=== PATIENT | female | born 1980 | race Caucasian/White ===

== ENCOUNTER → 2018-05-03 | Outpatient (REF) | payer OTHER ==
[~2018-05-03] MED LIST: ACE325 PO; ALB0.5 INH; CELE-1 PO; CIP500 PO; CYC10 PO; FOL1 PO; HYDR-389 PO; HYDR473S4 PO; IBU200 PO; IBU800 PO; IBUP-1687 PO; IBUP800T37 PO; LOR5 PO; LOR5/325 PO; OND4 PO; PREN-127 PO; SUDAFED
[2018-05-03 15:40] LABS: PLATELET COUNT, AUTOMATED 292 K/uL (150-450)
== END ==
PROVIDERS: ATTEND Nurse Practitioner Family
DX: R42 Dizziness and giddiness (principal)
CPT/HCPCS: 82040; 82247; 82310; 82374; 82435; 82565; 82947; 84075; 84132; 84155; 84295; 84450; 84460; 84520; 85025

== ENCOUNTER 2018-05-19 11:59 | Emergency (ER) | payer OTHER ==
--- NOTE | 2018-05-19 12:08 | ER Report ---
History and Physical Time Seen By MD: 12:08 HPI/ROS CHIEF COMPLAINT: Cardiac problem HISTORY OF PRESENT ILLNESS: Patient is a 38 year old female who presents to the emergency department with complaint of left-sided chest pain that began approxi mately 1 hour prior to presentation. Patient states proximal me 3 hours prior to presentation she was involved in an argument with a coworker. She admits that this increased her anxiety, she did not initially have chest pain during the argument. Patient admits to some exertional dyspnea. She denies cough or fever. Patient is a smoker. She states she smokes approximately 10-15 cigarettes daily. No prior cardiac history in herself however there is history of cardiac disease in her immediate family. Patient does state that at time she has lightheadedness she is not currently experiencing that but she is complaining of numbness to her fingertips bilaterally. REVIEW OF SYSTEMS: Constitutional: No fever, no chills. Eyes: No discharge. ENT: No sore throat. Cardiovascular: Chest pain Respiratory: Exertional dyspnea Gastrointestinal: No abdominal pain, no vomiting. Genitourinary: No hematuria. Musculoskeletal: No back pain. Skin: No rashes. Neurological: No headache. Allergies: Coded Allergies: iodine (Verified Allergy, Intermediate, 05/19/18) Shellfish (Verified Allergy, Mild, 05/19/18) egg (Verified Allergy, Mild, 05/19/18) latex (Verified Allergy, Mild, 05/19/18) Uncoded Allergies: PEANUTS (Allergy, Intermediate, TONGUE SWELLING, 06/12/10) BANANAS (Allergy, Mild, 06/12/10) TOMATOES (Allergy, Mild, 06/12/10) Home Meds Reported Medications Escitalopram Oxalate (LEXAPRO) 5 Mg Tablet, 10 MG PO QDAY 05/19/18 Ibuprofen (ADVIL) 200 Mg Tablet, 1-2 TAB PO Q6-8H PRN for PAIN/HEADACHE 07/22/16 Discontinued Reported Medications Celecoxib (CELEBREX) 200 Mg Capsule, 200 MG PO QDAY PRN for PAIN, CAPSULE 07/22/16 Acetaminophen (Tylenol) 325 Mg Tab, 325 MG PO Q4-6H PRN for PAIN/HEADACHE 08/04/11 Discontinued Scripts Ibuprofen (IBUPROFEN) 800 Mg Tablet, 800 MG PO Q8H PRN for PAIN, #30 TAB 0 Refills Prov:STEVE REN MD 07/30/16 Acetaminophen/Hydrocodone (HYDROCODON-ACETAMINOPH 7.5-325) 1 Each Ea, 1-2 EACH PO Q4H PRN for PAIN, #30 EA 0 Refills Prov:STEVE REN MD 07/30/16 Past Medical/Surgical History Depression Hx Smoking: Yes (SMOKED 3/4 PPD FOR 15 YEARS.) Smoking Status: Former Smoker Exposure to Second Hand Smoke?: Yes Hx Substance Use Disorder: No Hx Alcohol Use: Yes Constitutional Vital Sign - Last 24 Hours 05/19/18 05/19/18 12:02 12:20 Temp 98.5 Pulse 85 Resp 20 B/P (MAP) 136/86 Pulse Ox 93 O2 Delivery Room Air O2 Flow Rate 2.0 Physical Exam General Appearance: The patient is alert, has no immediate need for airway protection and no signs of toxicity. ENT, Mouth: Mucous membranes are moist. Respiratory: There are no retractions, lungs are clear to auscultation. Cardiovascular: Regular rate and rhythm. Gastrointestinal: Abdomen is soft and non tender, no masses, bowel sounds normal. Neurological: Awake and alert Musculoskeletal: Neck is supple non tender. Extremities are nontender, nonswollen and have full range of motion. Medical Decision Making Data Points Result Diagram: 05/19/18 1213 05/19/18 1213 Laboratory Hematology Test 05/19/18 12:13 Red Blood Count 5.22 M/uL (4.17-5.56) Mean Corpuscular Volume 88.6 fL (80.0-96.0) Mean Corpuscular Hemoglobin 30.4 pg (26.0-33.0) Mean Corpuscular Hemoglobin Concent 34.3 g/dL (32.0-36.0) Red Cell Distribution Width 13.8 % (11.5-14.5) Mean Platelet Volume 7.6 fL (7.2-11.1) Neutrophils (%) (Auto) 60.4 % (39.4-72.5) Lymphocytes (%) (Auto) 27.6 % (17.6-49.6) Monocytes (%) (Auto) 5.5 % (4.1-12.4) Eosinophils (%) (Auto) 5.4 % (0.4-6.7) Basophils (%) (Auto) 1.1 % (0.3-1.4) Nucleated RBC Relative Count (auto) 0.2 /100WBC Neutrophils # (Auto) 5.7 K/uL (2.0-7.4) Lymphocytes # (Auto) 2.6 K/uL (1.3-3.6) Monocytes # (Auto) 0.5 K/uL (0.3-1.0) Eosinophils # (Auto) 0.5 K/uL (0.0-0.5) Basophils # (Auto) 0.1 K/uL (0.0-0.1) Nucleated RBC Absolute Count (auto) 0.02 K/uL D-Dimer Quantitative (PE/DVT) 0.59 ug/ml (0-0.50) Sodium Level 140 mmol/L (137-145) Potassium Level 4.1 mmol/L (3.5-5.0) Chloride Level 107 mmol/L (98-107) Carbon Dioxide Level 23 mmol/L (22-31) Blood Urea Nitrogen 9 mg/dl (7-18) Creatinine 0.90 mg/dl (0.52-1.04) Glomerular Filtration Rate Calc > 60.0 Random Glucose 86 mg/dl (75-110) Calcium Level 8.7 mg/dl (8.4-10.2) Total Bilirubin 0.3 mg/dl (0.2-1.3) Aspartate Amino Transf (AST/SGOT) 28 U/L (0-35) Alanine Aminotransferase (ALT/SGPT) 22 U/L (0-56) Alkaline Phosphatase 103 U/L (0-126) Troponin I < 0.012 ng/ml Total Protein 7.5 g/dl (6.3-8.2) Albumin 4.2 g/dl (3.5-5.0) Human Chorionic Gonadotropin, Qual Negative (NEGATIVE) Chemistry Test 05/19/18 12:13 White Blood Count 9.4 k/uL (4.5-11.0) Red Blood Count 5.22 M/uL (4.17-5.56) Hemoglobin 15.9 g/dL (12.0-16.0) Hematocrit 46.3 % (34.0-47.0) Mean Corpuscular Volume 88.6 fL (80.0-96.0) Mean Corpuscular Hemoglobin 30.4 pg (26.0-33.0) Mean Corpuscular Hemoglobin Concent 34.3 g/dL (32.0-36.0) Red Cell Distribution Width 13.8 % (11.5-14.5) Platelet Count 276 K/uL (150-450) Mean Platelet Volume 7.6 fL (7.2-11.1) Neutrophils (%) (Auto) 60.4 % (39.4-72.5) Lymphocytes (%) (Auto) 27.6 % (17.6-49.6) Monocytes (%) (Auto) 5.5 % (4.1-12.4) Eosinophils (%) (Auto) 5.4 % (0.4-6.7) Basophils (%) (Auto) 1.1 % (0.3-1.4) Nucleated RBC Relative Count (auto) 0.2 /100WBC Neutrophils # (Auto) 5.7 K/uL (2.0-7.4) Lymphocytes # (Auto) 2.6 K/uL (1.3-3.6) Monocytes # (Auto) 0.5 K/uL (0.3-1.0) Eosinophils # (Auto) 0.5 K/uL (0.0-0.5) Basophils # (Auto) 0.1 K/uL (0.0-0.1) Nucleated RBC Absolute Count (auto) 0.02 K/uL D-Dimer Quantitative (PE/DVT) 0.59 ug/ml (0-0.50) Glomerular Filtration Rate Calc > 60.0 Calcium Level 8.7 mg/dl (8.4-10.2) Total Bilirubin 0.3 mg/dl (0.2-1.3) Aspartate Amino Transf (AST/SGOT) 28 U/L (0-35) Alanine Aminotransferase (ALT/SGPT) 22 U/L (0-56) Alkaline Phosphatase 103 U/L (0-126) Troponin I < 0.012 ng/ml Total Protein 7.5 g/dl (6.3-8.2) Albumin 4.2 g/dl (3.5-5.0) Human Chorionic Gonadotropin, Qual Negative (NEGATIVE) Coagulation Test 05/19/18 12:13 D-Dimer Quantitative (PE/DVT) 0.59 ug/ml ED Course/Re-evaluation ED Course 05/19/2018 12:33:41 pm patient is a 38 her old female who has a positive family history for coronary artery disease and NC, on with the NC occurring at young age but no cardiac disease in herself. Likelihood the patient's symptoms are cardiac or pulmonary nature are low but will perform screening test with d-dimer and troponin. EKG is otherwise unremarkable. We'll try Toradol for pain and Ativan for anxiety. Re-evaluation 05/19/2018 2:21:31 pm patient does have an iodine allergy she was premedicated with 25 mg of IV Benadryl and 60 mg of Solu-Medrol. Patient did report some mild throat itching upon return from CT so she was given additional 25 mg of Benadryl along with 0.5 mg of Ativan for mild anxiety. Patient feeling better at this time. CT scan negative for PE will discharge home. Decision to Disposition Date: May 19, 2018 Decision to Disposition Time: 14:22 Depart Departure Latest Vital Signs Vital Signs Date Time Temp Pulse Resp B/P (MAP) Pulse Ox O2 Delivery O2 Flow Rate FiO2 05/19/18 12:20 2.0 05/19/18 12:02 98.5 85 20 136/86 93 Room Air Impression: Primary Impression: Non-cardiac chest pain Condition: Improved Disposition: HOME OR SELF-CARE Departure Forms: ER Transition Record, Medications Reconciliation, Off Work/School Form, School or Work Release?: Work Number of days to be released: 1 Patient Portal Information Patient Instructions: Noncardiac Chest Pain (ED) JUSTICE CARVALHO MD May 19, 2018 12:08
[2018-05-19] MEDS ORDERED: ESCI5TAB10 PO (12:10)
--- NOTE | 2018-05-19 12:34 | EKG ---
FACILITY: [facility] PATIENT NAME: PLACIDO ASHLEY : [id number] MR: [id number] V: [id number] EXAM DATE: ORDERING PHYSICIAN: JUSTICE CARVALHO TECHNOLOGIST: SNEHA Song Reason : Blood Pressure : / mmHG Vent. Rate : 080 BPM Atrial Rate : 080 BPM P-R Int : 120 ms QRS Dur : 086 ms QT Int : 382 ms P-R-T Axes : 048 091 063 degrees QTc Int : 440 ms Sinus rhythm Rightward axis Borderline ECG Artifact in limb leads - repeat if needed No previous ECGs available Confirmed by RITA REHMAN ([id number]) on 05/19/2018 7:54:35 PM Referred By: Confirmed By:RITA REHMAN
[2018-05-19] MEDS ORDERED: LORazepam 2 MG/ML VIAL IVP ONE ×2 (12:35→13:45)
[2018-05-19] MEDS ORDERED: KETOROLAC 30 MG/ML VIAL IVP ONE (12:35)
[2018-05-19 12:41] LABS: PLATELET COUNT, AUTOMATED 276 K/uL (150-450)
[2018-05-19 13:00] VITALS: BP 126/85
[2018-05-19] MEDS ORDERED: methylPREDNIS SUCC 125 MG/2ML IVP ONE (13:05)
[2018-05-19] MEDS ORDERED: diphenhydrAMINE 50 MG/ML VIAL IVP ONE ×2 (13:05→13:45)
[2018-05-19] MEDS ORDERED: IOPAMIDOL 61% 50 ML INFUS BTL 50 ML ONE (13:28)
[2018-05-19] MEDS ORDERED: NS(*) 0.9% 50 ML BAG 50 ML ONE ×2 (13:28→13:43)
[2018-05-19] MEDS ORDERED: IOPAMIDOL 76% 50 ML INFUS BTL 100 ML ONE (13:29)
--- NOTE | 2018-05-19 13:29 | RADIOLOGY IMAGING REPORT ---
FACILITY: [facility] - [place] PATIENT NAME: Airam Manrique : 1980 MR: [id number] V: [id number] EXAM DATE: ORDERING PHYSICIAN: JUSTICE CARVALHO TECHNOLOGIST: Location: [facility] - [place] Patient: Airam Manrique : 1980 Visit/Account:[id number] Date of Sevice: 05/19/2018 Exam type: CHEST PA AND LAT History: Chest pain on left x1 hour Comparison: April 28, 2008. Findings: Lungs are free of acute effusions infiltrates or edema. There is no evidence of a pneumothorax or pn eumomediastinum. The cardiac silhouette is normal in size. The trachea is in midline. IMPRESSION: 1. No acute cardiopulmonary process is seen Report Dictated By: Velvet Walker MD at 05/19/2018 1:23 PM Report E-Signed By: Velvet Walker MD at 05/19/2018 1:24 PM WSN:[email or web address]
--- NOTE | 2018-05-19 14:18 | RADIOLOGY IMAGING REPORT ---
FACILITY: [facility] - [place] PATIENT NAME: Airam Manrique : 1980 MR: [id number] V: [id number] EXAM DATE: ORDERING PHYSICIAN: JUSTICE CARVALHO TECHNOLOGIST: Location: [facility] - [place] Patient: Airam Manrique : 1980 Visit/Account:[id number] Date of Sevice: 05/19/2018 EXAMINATION: CTA Chest With Contrast 05/19/2018 1:01 PM HISTORY: dyspnea TECHNIQUE: Pulmonary embolus protocol - Thin-slice axial imaging of the chest was performed during maximal pulmonary arterial opacification with intravenous nonionic iodinated contrast. 3D slab MIPs a nd 2D reconstructions in the coronal and sagittal planes were performed. Grinding Room Supervisor images have b een stored on PACS. Contrast: 75 mL of IV Isovue 370. One of the following dose optimization techniques was utilized in the performance of this exam: Autom ated exposure control; adjustment of the mA and/or kV according to the patient's size; or use of an i terative reconstruction technique. Specific details can be referenced in the facility's radiology C T exam operational policy. COMPARISON STUDIES: Chest x-ray today. FINDINGS: Angiographic Findings: Pulmonary arteries: There are no filling defects in the main, right, left, lobar, segmental or visual ized sub-segmental branches of the pulmonary arterial system Other vasculature: negative Additional non-angiographic findings: Lungs / pleura: 3 mm right upper lobe micronodule (series 5 image 40). 6 no linear nodular density ( image 49) is benign-appearing perifissural thickening shown better by sagittal reformats) image 144). 3 mm lateral right middle lobe micronodule (image 51). 2 mm lateral left upper lobe micronodule (i mage 43). Mediastinum / anjelica: negative Heart / pericardium: negative Musculoskeletal / Body wall: negative Lymph node assessment: negative Lower neck: negative Upper abdomen: Prior cholecystectomy. Mildly thickened appearance of the splenic flexure appears to be technical due to its collapsed state. Density in the upper pole of the left kidney appears to be the beginnings of contrast excretion rather than nephrolithiasis. IMPRESSION: 1. Negative CTA evaluation for PE. 2. Indeterminate bilateral pulmonary micronodules. Based on size these would not require follow-up unless otherwise clinically indicated in which case a one-year interval would be recommended. 3. Otherwise unremarkable study. Report Dictated By: Myles Freeman MD at 05/19/2018 2:02 PM Report E-Signed By: Myles Freeman MD at 05/19/2018 2:13 PM WSN:[id number]
== END 2018-05-19 14:38 | disposition home or self-care (01) ==
LOC: ER 12:00
DX: R07.89 Other chest pain (principal)
CPT/HCPCS: 71046; 71275; 84484; 84703; 85025; 85379; 93005; 96374; 96375; 96376; 99284; J1200; J1885; J2060; J2930; J7050; Q9967; 82040; 82247; 82310; 82374; 82435; 82565; 82947; 84075; 84132; 84155; 84295; 84450; 84460; 84520

== ENCOUNTER 2018-12-30 12:50 | Emergency (ER) | payer OTHER ==
[~2018-12-30 12:50] MED LIST changes: +ESCI5TAB10 PO
[2018-12-30] MEDS ORDERED: THYROID MEDICATION (13:09)
[2018-12-30] MEDS ORDERED: FLUT16SP19 NS (13:09)
[2018-12-30] MEDS ORDERED: FAMOTIDINE(*) 20MG/50ML PREMIX 50 ML IVPB ONE (13:32)
[2018-12-30] MEDS ORDERED: NS(*) 0.9% 1000 ML BAG 1,000 ML IV ONE (13:32)
--- NOTE | 2018-12-30 13:32 | ER Report ---
History and Physical Time Seen By MD: 13:10 HPI/ROS 38-year-old female presents with nausea for a week and a black tarry stool 1 week ago. Stools have been green, yellow and seedy for the last several days and she's had some stool urgency. Yesterday patient was working at work and nearly passed out but she was doing lifting and moving. She does continue to drink 32 ounces of water 4 times a day. She's also had body aches and stiff neck. She is most nauseated when she gets in the cars. She has a headache behind her eyes is where it starts in angle sore whole head. It is not throbbing. She had headaches like this prior to getting eyeglasses it is because of high strain. Her left ear has been hurting for a week with drainage. No dental complaints. She has seasonal allergies at this time and she is using Benadryl and Flonase for this. No sneezing or itching. No shortness of breath nor any cough or wheezing. She denies chest pain. She has not had any dysuria, frequency, or urgency. Patient is had a cholecystectomy as well as a hysterectomy. REVIEW OF SYSTEMS: Constitutional: No fever, no chills. Eyes: No discharge. ENT: Patient has a negative starts behind her eyes. She's had some ear drainage and left ear pain. Cardiovascular: No chest pain, no palpitations. Respiratory: No cough, no shortness of breath. Gastrointestinal: Patient is had abdominal pain for a week with nausea. It is mostly the nausea causing the pain. She has not vomited. She had black tarry stool week ago just one time and since then edited in yellow seedy and loose for the last 2 days. She's had some stool urgency as well. Genitourinary: No dysuria frequency or urgency. No flank pain. No fever. Musculoskeletal: No back pain. Skin: No rashes. Neurological: Patient is had a headache starting behind her eyes. She has had no room spinning dizziness. She has had lightheadedness and especially when lifting and straining. Yesterday while at work she was lifting and straining and nearly passed out. No focal neurologic symptoms noted. abdominal pain including but not limited to appendicitis, cholecystitis, gastritis and urinary tract infection. Remainder of the 14 system rev: Yes Allergies: Coded Allergies: iodine (Verified Allergy, Intermediate, 05/19/18) Shellfish (Verified Allergy, Mild, 05/19/18) egg (Verified Allergy, Mild, 05/19/18) latex (Verified Allergy, Mild, 05/19/18) Uncoded Allergies: PEANUTS (Allergy, Intermediate, TONGUE SWELLING, 06/12/10) BANANAS (Allergy, Mild, 06/12/10) TOMATOES (Allergy, Mild, 06/12/10) Home Meds Reported Medications [Thyroid Medication] No Conflict Check 12/30/18 Fluticasone Prop 50 Mcg Ns (FLONASE 50 MCG NS) 16 Gm [place].susp, 1 SPRAY NS BID, BOT 12/30/18 Escitalopram Oxalate (LEXAPRO) 5 Mg Tablet, 10 MG PO QDAY 05/19/18 Discontinued Reported Medications Ibuprofen (ADVIL) 200 Mg Tablet, 1-2 TAB PO Q6-8H PRN for PAIN/HEADACHE 07/22/16 Past Medical/Surgical History Patient is a hysterectomy and a cholecystectomy. Patient has history of headaches but only with eyestrain. Patient is overweight. She has seasonal allergies, depression, and is hypothyroid. Reviewed Nurses Notes: Yes Hx Smoking: Yes (SMOKED 3/4 PPD FOR 15 YEARS.) Smoking Status: Former Smoker Exposure to Second Hand Smoke?: Yes Hx Substance Use Disorder: Yes Hx Alcohol Use: Yes Constitutional Vital Sign - Last 24 Hours 12/30/18 12:58 Temp 98.2 Pulse 83 Resp 18 B/P (MAP) 141/102 Pulse Ox 92 O2 Delivery Room Air Physical Exam General Appearance: [The patient is alert, has no immediate need for airway pr otection and no current signs of toxicity.] [ ] Eyes: Pupils equal and round no injection. Respiratory: Patient has sternal tenderness down to xiphoid tenderness. She also has parasternal tenderness above T4. Lungs are clear to auscultation. There is no abrasions or swelling or redness. Cardiac: regular rate and rhythm good radial pulsations equal and symmetric bilaterally Gastrointestinal: Good bowel sounds and soft. She's got mild epigastric and suprapubic tenderness. Musculoskeletal: Neck: Mild paracervical muscle tenderness in the neck. Extremities have full range of motion and are non tender. Skin: Patient has some excoriations on the extremities. Rest of review of systems was negative. DIFFERENTIAL DIAGNOSIS: After history and physical exam differential diagnosis was considered for dizziness including but not limited to peripheral and central causes of vertigo, orthostatic causes including dehydration, and blood loss. Medical Decision Making Data Points Result Diagram: 12/30/18 1300 12/30/18 1300 Laboratory Hematology Test 12/30/18 13:00 White Blood Count 11.2 k/uL (4.5-11.0) H Red Blood Count 6.00 M/uL (4.17-5.56) H Hemoglobin 18.4 g/dL (12.0-16.0) H Hematocrit 53.1 % (34.0-47.0) H Mean Corpuscular Volume 88.5 fL (80.0-96.0) Mean Corpuscular Hemoglobin 30.7 pg (26.0-33.0) Mean Corpuscular Hemoglobin Concent 34.7 g/dL (32.0-36.0) Red Cell Distribution Width 13.7 % (11.5-14.5) Platelet Count 297 K/uL (150-450) Mean Platelet Volume 8.1 fL (7.2-11.1) Neutrophils (%) (Auto) 63.8 % (39.4-72.5) Lymphocytes (%) (Auto) 25.5 % (17.6-49.6) Monocytes (%) (Auto) 6.3 % (4.1-12.4) Eosinophils (%) (Auto) 3.6 % (0.4-6.7) Basophils (%) (Auto) 0.8 % (0.3-1.4) Nucleated RBC Relative Count (auto) 0.3 /100WBC Neutrophils # (Auto) 7.2 K/uL (2.0-7.4) Lymphocytes # (Auto) 2.9 K/uL (1.3-3.6) Monocytes # (Auto) 0.7 K/uL (0.3-1.0) Eosinophils # (Auto) 0.4 K/uL (0.0-0.5) Basophils # (Auto) 0.1 K/uL (0.0-0.1) Nucleated RBC Absolute Count (auto) 0.03 K/uL Chemistry Test 12/30/18 13:00 Sodium Level 139 mmol/L (137-145) Potassium Level 3.9 mmol/L (3.5-5.0) Chloride Level 102 mmol/L (98-107) Carbon Dioxide Level 25 mmol/L (22-31) Blood Urea Nitrogen 8 mg/dl (7-18) Creatinine 0.90 mg/dl (0.52-1.04) Glomerular Filtration Rate Calc > 60.0 Random Glucose 93 mg/dl (75-110) Calcium Level 9.1 mg/dl (8.4-10.2) Total Bilirubin 0.7 mg/dl (0.2-1.3) Aspartate Amino Transf (AST/SGOT) 30 U/L (0-35) Alanine Aminotransferase (ALT/SGPT) 27 U/L (0-56) Alkaline Phosphatase 115 U/L (0-126) C-Reactive Protein < 0.5 mg/dl (<1.0) Total Protein 8.5 g/dl (6.3-8.2) Albumin 4.8 g/dl (3.5-5.0) Lipase 204 U/L (23-300) Urinalysis Test 12/30/18 12:54 Urine Color Yellow Urine Clarity Clear Urine pH 6.0 pH (4.8-9.5) Urine Specific [place] 1.005 Urine Protein Negative mg/dL (NEGATIVE) Urine Glucose (UA) Negative mg/dL (NEGATIVE) Urine Ketones Negative mg/dL (NEGATIVE) Urine Blood Negative (NEGATIVE) Urine Nitrite Negative (NEGATIVE) Urine Bilirubin Negative (NEGATIVE) Urine Urobilinogen Negative mg/dL (0.2-1.9) Urine Leukocyte Esterase Negative (NEGATIVE) Urine RBC <1 /HPF (0-2/HPF) Urine WBC <1 /HPF (0-5/HPF) Urine Squamous Epithelial Cells Many /LPF (</=FEW) Urine Bacteria Few /HPF (NONE-FEW) Urine Mucus None /HPF (NONE-FEW) ED Course/Re-evaluation ED Course Patient was given a liter of fluid and some IV Pepcid and Zofran. She felt little bit better. Labs came back essentially normal. KUB and chest x-ray came back normal. Patient continued to have epigastric tenderness and I suspect she has a little gastritis resulting she's got any gastric ulcer disease at this time. Discussed the black stool and was not tarry. She did not have any iron intake noted she having Pepto-Bismol. She is not anemic and I don't believe this was an upper GI bleed as there is no tar or truly melanotic stool. Patient will be sent home and advised to take Pepcid AC twice a day for a week to 10 days. She is to follow-up if she has them or black stools. Procedure Labs were all essentially within normal limits. KUB was normal. IV famotidine and Zofran helped a little bit. Patient will be advised to take Pepcid AC twice a day for a week 10 days to fact itself. If she has black melanotic stool she needs to have that further worked up. At this time she'll be discharged with a famotidine ordered. Decision to Disposition Date: Dec 30, 2018 Decision to Disposition Time: 15:50 Depart Departure Latest Vital Signs Vital Signs Date Time Temp Pulse Resp B/P (MAP) Pulse Ox O2 Delivery O2 Flow Rate FiO2 12/30/18 12:58 98.2 83 18 141/102 92 Room Air Impression: Primary Impression: Gastritis Additional Impressions: Costochondritis Polycythemia Condition: Improved Disposition: HOME OR SELF-CARE Referrals: STEVE REN MD (PCP) Departure Forms: ER Transition Record, Medications Reconciliation, Patient Portal Information Patient Instructions: Costochondritis (ED), Gastritis (ED) Additional Instructions: Pepcid AC twice a day for 10 days. Watch for black stools and take at to your PCP to be checked for blood. Call if you have any questions or problems. Tylenol for the chest wall pain and ice to the area and this should be helpful. Problem Qualifiers Primary Impression: Gastritis Gastritis type: unspecified gastritis Chronicity: acute Gastritis bleeding: presence of bleeding unspecified Qualified Codes: K29.00 - Acute gastritis without bleeding JACQUELINE NAVA MD Dec 30, 2018 13:32
[2018-12-30] MEDS ORDERED: ONDANSETRON 4 MG/2 ML VIAL IVP ONE (13:35)
[2018-12-30 13:52] LABS: PLATELET COUNT, AUTOMATED 297 K/uL (150-450)
--- NOTE | 2018-12-30 14:41 | RADIOLOGY IMAGING REPORT ---
FACILITY: [facility] PATIENT NAME: Airam Manrique : 1980 MR: [id number] V: [id number] EXAM DATE: ORDERING PHYSICIAN: JACQUELINE NAVA TECHNOLOGIST: Location: [facility] Patient: Airam Manrique : 1980 Visit/Account:[id number] Date of Sevice: 12/30/2018 Study: ACUTE ABDOMEN SERIES 3 VIEW Indication: Nausea, diarrhea Comparison study: None available Findings: AP upright chest and upright and supine views of the abdomen demonstrates that the chest is unremarkable. There is no evidence of pneumoperitoneum. There is no evidence of small bowel obstruction. The bowel gas pattern is unremarkable in appearance. The patient is status post cholecystectomy. IMPRESSION: No significant abnormality identified. Report Dictated By: Chris Garrett at 12/30/2018 2:31 PM Report E-Signed By: Chris Garrett at 12/30/2018 2:32 PM WSN:[id number]
[2018-12-30 16:15] VITALS: BP 130/78
== END 2018-12-30 16:35 | disposition home or self-care (01) ==
LOC: ER 13:00
DX: K29.00 Acute gastritis without bleeding (principal); M94.0 Chondrocostal junction syndrome [Tietze]; D75.1 Secondary polycythemia
CPT/HCPCS: 74022; 81001; 83690; 85025; 86140; 96361; 96365; 96375; 99284; J2405; J7030; 82040; 82247; 82310; 82374; 82435; 82565; 82947; 84075; 84132; 84155; 84295; 84450; 84460; 84520